=== PATIENT | male | born 2000 | race Asian ===

== ENCOUNTER 2021-10-22 20:01 | Inpatient (IN) | payer OTHER, SELFPAY ==
[2021-10-22 20:15] VITALS: BP 128/77; PULSE 75; RESP 16; TEMP 36.3; O2SAT 99
[2021-10-22 21:28] VITALS: BMI 23.1
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
[2021-10-23 08:30] VITALS: PULSE 80; RESP 18; TEMP 36.7; O2SAT 100
[2021-10-23 08:56] LABS: Estimated Average Glucose 88 mg/dL; Hemoglobin A1c % 4.7 %
[2021-10-23 09:14] LABS: Alanine Aminotransferase 26 U/L (0-40); Albumin Level 4.7 g/dL (3.5-5.0); Alkaline Phosphatase 45 U/L (39-117); Anion Gap 14 (12-20); Aspartate Amino Transferase 18 U/L (5-37); Bilirubin Total 0.5 mg/dL (0.0-1.0); Blood Urea Nitrogen 13 mg/dL (9-16); Calcium 9.9 mg/dL (8.4-10.2); Carbon Dioxide 29 mmol/L (22-29); Chloride 102 mmol/L (96-108); Cholesterol 250 mg/dL; Creatinine Clr Calc Pharmacy 129.9; Estimated Glomerular Filt Rate > 60; Glucose Fasting 93 mg/dL (60-99); HDL Cholesterol 64 mg/dL; LDL Cholesterol Calculated 158 mg/dl; Potassium 4.4 mmol/L (3.3-5.1); Sodium 141 mmol/L (135-145); Total Protein 7.6 g/dL (6.5-8.0); Triglycerides 143 mg/dL
[2021-10-23 09:46] LABS: Folate 8.5 ng/mL (> or = 4.0); Vitamin B12 291 pg/mL (200-900)
--- NOTE | 2021-10-23 11:53 | MHC.CLN ---
PT REPORTS 28# WT LOSS-UNABLE TO QUANTIFY TIMEFRAME FOR WT LOSS PT REPORTS changed physique since COVID messed up my schedule at the gym.? PT WITH 14% NON-SIGNIFICANT WT LOSS X 2 YEARS R/T POSSIBLE LOSS OF MUSCLE MASS SECONDARY TO NOT GOING TO GYM PT IS 96% IBW INDICATES ADEQUATE WT FOR HT, BMI 23 WNL DIET RX: REGULAR-APPROPRIATE MONITOR PO INTAKE CLOSELY IF POOR PO; RECOMMEND ADDING ENSURE BID SUPPLEMENT
--- NOTE | 2021-10-23 12:41 | PM.IMHP ---
History of Present Illness Date of Service: 10/23/21 Attending physician on admission: Jacqueline Kaiser Chief Complaint: routine medical H&P 21 year old male with history of bipolar disorder PMF Social History Household Members: Other Household Members Other:: one roommate Housing: Apartment Do you presently have visiting nurse or other home services: No Patient Tobacco Use Status: Current everyday Tobacco user Tobacco use type: Cigarette Cigarettes Per Day: 4 Years Smoked: 3 years Smoked in Last 30 Days: Yes e-Cigarette/Vaping Use: Former Use Patient Interested in Nicotine Replacement: No ( That's gross. ) Patient Given Instructions on How to Stop Smoking: No Second Hand Smoke Exposure: Yes Substance Use Type: Marijuana and Caffiene Substance Use Frequency: Chronic Longstanding Last Used Substance Other:: 10/21/21 Currently Displaying Signs/Symptoms of Drug Intoxication Withdrawal: No Have you been hit, kicked, punched, or otherwise hurt by someone within the past year? If so, by whom?: No Do you feel safe in your current relationship?: Yes Is there a partner from a previous relationship who is making you feel unsafe now?: No Are you made to feel afraid or neglected: Yes (Everybody in the world.) Sabianism Healthcare Practices: Jj used to heal the mentally unstable with cannabis so I'd be open to that; it's part of my sabianist beliefs. Advance Directives: No Advance Directives Information Provided: No ( No, and I don't want one. ) Do you have thoughts of harming others: None Do you have a plan to hurt others: No Plan Recently lost weight without trying: Yes How much weight loss: 14-23 pounds Eating poorly because of decreased appetite: No Nutrition screen score: 4 Nutrition Risks: No Nutritional Risk Poor oral hygiene: No service: No Sexual orientation: Straight/Heterosexual Meds Allergies Allergy/AdvReac Type Severity Reaction Status Date / Time No Known Allergies Allergy Verified 10/22/21 20:26 Active Medications: Current Medications Acetaminophen (Acetaminophen 325 Mg Tablet) 650 mg PO Q6H PRN PRN Reason: Headache/Pain Mild Scale (1-3) Al Hydroxide/Mg Hydroxide (Magnesium Hydrox/Alum Hydrox 30 Ml Oral.Susp) 30 ml PO Q6H PRN PRN Reason: Heartburn/Nausea Hydroxyzine HCl (Hydroxyzine Hcl 25 Mg Tablet) 25 mg PO Q6H PRN PRN Reason: Anxiety [place] Carbonate ([place] Carbonate Er 450 Mg Tablet.Er) 450 mg PO BID ALPHONSO Magnesium Hydroxide (Milk Of Magnesia 30 Ml Oral.Susp) 30 ml PO DAILY PRN PRN Reason: Constipation Trazodone HCl (Trazodone Hcl 50 Mg Tablet) 50 mg PO BEDTIME PRN PRN Reason: Insomnia Physical Exam Vital Signs and Narrative: Vital Signs: Last Vital Signs Temp 98.0 F 10/23/21 08:30 Pulse 80 10/23/21 08:30 Resp 18 10/23/21 08:30 BP 128/77 10/22/21 20:15 Pulse Ox 100 10/23/21 08:30 O2 Del Method 10/23/21 08:30 BMI result Body Mass Index 23.1 Results Labs CBC and Chem 7: 10/23/21 08:21 Labs: Laboratory Results - last 24 hr 10/23/21 10/23/21 10/23/21 08:21 08:21 08:21 Anion Gap 14 Estim Creat Clear Calc 129.9 Estimated GFR > 60 Fasting Glucose 93 Estimat Average Glucose 88 Hemoglobin A1c % 4.7 Calcium 9.9 Total Bilirubin 0.5 AST 18 ALT 26 Alkaline Phosphatase 45 Total Protein 7.6 Albumin 4.7 Triglycerides 143 Cholesterol 250 LDL Cholesterol, Calc 158 HDL Cholesterol 64 Vitamin B12 291 Folate 8.5 TSH 0.40
[2021-10-23] MEDS: Lithium Carbonate ER 450 MG TABLET.ER PO ×2 (12:43→20:48)
--- NOTE | 2021-10-23 12:52 | P.CONHOSP_ITS ---
History of Present Illness Data of Consult Service Date: 10/23/21 Requesting physician: Jacqueline Kaiser Primary Care Provider: Unknown Physician HPI Reason for consult: routine history and physical 21 year old patient with history of bipolar disorder, alcohol abuse consuming 3- 4 beers per day, and who is a 3-4 cigarette smoker per day admitted to psychiatry. Patient has no medical complaints or concerns at this time. Last alcoholic beverage was 3 days ago, denies any history of withdrawal. Not using NRT. Review of Systems Review of Systems: General: No fevers, malaise, unintentional weight loss HEENT: No diplopia, blurred vision, sore throat, congestion Cardiovascular: No chest pain, palpitations, or leg edema Respiratory: No shortness of breath, wheezing, cough GI: No abdominal pain, nausea, vomiting, diarrhea, constipation, melena, hematochezia : No dysuria, hematuria, increased urinary frequency Neuro: No headaches, weakness, paresthesias Skin: No rashes or lesions [facility] Medical History (Updated 10/23/21 @ 12:59 by GISELLA Lowe) Alcohol abuse Bipolar disorder Cigarette smoker Hyperlipidemia Family History Father Diabetes Paternal Uncle Diabetes Social History Household Members: Other Household Members Other:: one roommate Housing: Apartment Do you presently have visiting nurse or other home services: No Patient Tobacco Use Status: Current everyday Tobacco user Tobacco use type: Cigarette Cigarettes Per Day: 4 Years Smoked: 3 years Smoked in Last 30 Days: Yes e-Cigarette/Vaping Use: Former Use Patient Interested in Nicotine Replacement: No ( That's gross. ) Patient Given Instructions on How to Stop Smoking: No Second Hand Smoke Exposure: Yes Substance Use Type: Marijuana and Caffiene Substance Use Frequency: Chronic Longstanding Last Used Substance Other:: 10/21/21 Currently Displaying Signs/Symptoms of Drug Intoxication Withdrawal: No Have you been hit, kicked, punched, or otherwise hurt by someone within the past year? If so, by whom?: No Do you feel safe in your current relationship?: Yes Is there a partner from a previous relationship who is making you feel unsafe now?: No Are you made to feel afraid or neglected: Yes (Everybody in the world.) Yazidi Healthcare Practices: Jj used to heal the mentally unstable with cannabis so I'd be open to that; it's part of my adventist beliefs. Advance Directives: No Advance Directives Information Provided: No ( No, and I don't want one. ) Do you have thoughts of harming others: None Do you have a plan to hurt others: No Plan Recently lost weight without trying: Yes How much weight loss: 14-23 pounds Eating poorly because of decreased appetite: No Nutrition screen score: 4 Nutrition Risks: No Nutritional Risk Poor oral hygiene: No service: No Sexual orientation: Straight/Heterosexual Meds Allergies Allergy/AdvReac Type Severity Reaction Status Date / Time No Known Allergies Allergy Verified 10/22/21 20:26 Active Medications: Current Medications Acetaminophen (Acetaminophen 325 Mg Tablet) 650 mg PO Q6H PRN PRN Reason: Headache/Pain Mild Scale (1-3) Al Hydroxide/Mg Hydroxide (Magnesium Hydrox/Alum Hydrox 30 Ml Oral.Susp) 30 ml PO Q6H PRN PRN Reason: Heartburn/Nausea Hydroxyzine HCl (Hydroxyzine Hcl 25 Mg Tablet) 25 mg PO Q6H PRN PRN Reason: Anxiety [place] Carbonate ([place] Carbonate Er 450 Mg Tablet.Er) 450 mg PO BID ALPHONSO Last Admin: 10/23/21 12:43 Dose: 450 mg Magnesium Hydroxide (Milk Of Magnesia 30 Ml Oral.Susp) 30 ml PO DAILY PRN PRN Reason: Constipation Trazodone HCl (Trazodone Hcl 50 Mg Tablet) 50 mg PO BEDTIME PRN PRN Reason: Insomnia Physical Exam Vital Signs and Narrative: Vital Signs: Last Vital Signs Temp 98.0 F 10/23/21 08:30 Pulse 80 10/23/21 08:30 Resp 18 10/23/21 08:30 BP 128/77 10/22/21 20:15 Pulse Ox 100 10/23/21 08:30 O2 Del Method 10/23/21 08:30 BMI result Body Mass Index 23.1 Constitutional - Awake and Alert, No apparent distress Eyes - PERRLA, EOMI Cardiovascular - S1S2, RRR, No edema Respiratory - Normal lung expansion, Normal respiratory effort, No respiratory distress, CTA bilaterally Gastrointestinal - NT / ND; +BS; No rebound or guarding Extremities - no calf tenderness bilaterally, no swelling Musculoskeletal - Normal inspection, normal ROM Skin - Warm/Dry Neurological - Alert & oriented x3, CN II- XII in tact, 5/5 strength BUE and BLE Psychological - Flat affect, avoidant eye contact, delusions Results Labs CBC and Chem 7: 10/23/21 08:21 Labs: Laboratory Results - last 24 hr 10/23/21 10/23/21 10/23/21 08:21 08:21 08:21 Anion Gap 14 Estim Creat Clear Calc 129.9 Estimated GFR > 60 Fasting Glucose 93 Estimat Average Glucose 88 Hemoglobin A1c % 4.7 Calcium 9.9 Total Bilirubin 0.5 AST 18 ALT 26 Alkaline Phosphatase 45 Total Protein 7.6 Albumin 4.7 Triglycerides 143 Cholesterol 250 LDL Cholesterol, Calc 158 HDL Cholesterol 64 Vitamin B12 291 Folate 8.5 TSH 0.40 Assessment and Plan (1) Bipolar disorder: Status: Acute (2) Cigarette smoker: Status: Acute (3) Alcohol abuse: Status: Acute Plan 21 year old male with history of bipolar disorder, alcohol abuse, and who is a 3-4 cigarette/day smoker admitted to psychiatry with consult performed for routine medical H&P. 1- Bipolar disorder -Plan per psychiatry 2-Alcohol abuse -Patient consumes 3-4 beers per day, last drink 3 days ago. No active signs of withdrawal -LFTs normal -Plan per psychiatry 3-Cigarette smoker- smokes 3-4 per day and MJ -Not interested in NRT 4-Hyperlipidemia -Total cholesterol elevated 250, LDL 158. HDL and triglycerides normal -Follow up outpt with pcp Thank you for allowing me to participate in this consult. Signing off at this time. Please do not hesitate to call for further questions.
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
[2021-10-23 20:49] VITALS: BP 140/72; PULSE 76; TEMP 36.7; O2SAT 97
[2021-10-23 22:14] VITALS: BMI 23.1
[2021-10-24] MEDS: Lithium Carbonate ER 450 MG TABLET.ER PO (08:24)
[2021-10-24 08:54] VITALS: BP 135/82; PULSE 84; RESP 16; TEMP 36.6; O2SAT 98
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
== END 2021-10-24 11:45 | disposition home or self-care (01) | DRG 885 ==
PROVIDERS: Social Worker; Admitting Provider Psychiatry & Neurology Psychiatry; Visit Provider Psychiatry & Neurology Psychiatry
DX: F31.9 Bipolar disorder, unspecified (principal); R45.851 Suicidal ideations; F10.10 Alcohol abuse, uncomplicated; E78.5 Hyperlipidemia, unspecified; F17.210 Nicotine dependence, cigarettes, uncomplicated; Z62.810 Personal history of physical and sexual abuse in childhood; Z71.6 Tobacco abuse counseling; Z79.899 Other long term (current) drug therapy
CPT/HCPCS: 36415; 80053; 80061; 82607; 82746; 83036; 84443